=== PATIENT | female | born 1990 | race Caucasian/White ===

== ENCOUNTER 2018-11-17 21:07 | Emergency (ER) | payer MEDICAID ==
[2018-11-17] MEDS ORDERED: LIDOCAINE HCL 2% VISCOUS 15 ML UDCUP ONE ×2 (21:34→21:37)
== END 2018-11-17 21:39 | disposition home or self-care (01) ==
LOC: EDH 21:07
DX: K02.9 Dental caries, unspecified (principal); Z72.0 Tobacco use